=== PATIENT | female | born 1990 | race American Indian/Alaskan Native ===

== ENCOUNTER 2020-12-26 11:54 | Emergency (ER) | payer SELFPAY ==
--- NOTE | 2020-12-26 12:32 | Emergency Department Report ---
ED General Adult HPI - General Stated complaint: RAPID HEART BEAT Time Seen by Provider: 12/26/20 12:20 Source: patient - History of Present Illness Initial comments: Patient is 30 years old female with history of scoliosis. Patient presented to the ER complaining of sudden onset of palpitation after she had a hot shower this morning. Patient stated that she was diagnosed with acute bronchitis yesterday and started on Zithromax. Patient stated that she think this is allergy from her antibiotic. Patient stated that she did not take Zithromax before. Patient currently denying any fever, chills, shortness of breath, chest pain, nausea or vomiting. No skin rash or itching. - Related Data Allergies Allergy/AdvReac Type Severity Reaction Status Date / Time sulfamethoxazole AdvReac Unknown Verified 12/26/20 12:46 [From Bactrim] trimethoprim [From Bactrim] AdvReac Unknown Verified 12/26/20 12:46 ED Review of Systems ROS: Stated complaint: RAPID HEART BEAT Other details as noted in HPI Comment: All other systems reviewed and negative Constitutional: denies: chills, fever Respiratory: denies: cough, shortness of breath, SOB with exertion Cardiovascular: palpitations. denies: chest pain Gastrointestinal: denies: abdominal pain, nausea, vomiting Musculoskeletal: denies: back pain Neurological: denies: headache, weakness ED Physical Exam - General Limitations: No Limitations General appearance: alert, in no apparent distress, anxious - Head Head exam: Present: atraumatic, normocephalic, normal inspection - Eye Eye exam: Present: normal appearance - ENT ENT exam: Present: normal exam, normal orophraynx, mucous membranes moist - Neck Neck exam: Present: normal inspection, full ROM. Absent: tenderness, meningismus - Respiratory Respiratory exam: Present: normal lung sounds bilaterally - Cardiovascular Cardiovascular Exam: Present: regular rate, normal rhythm, normal heart sounds. Absent: tachycardia - GI/Abdominal GI/Abdominal exam: Present: soft, normal bowel sounds. Absent: distended, tenderness, guarding, rebound, rigid, organomegaly, mass, bruit, pulsatile mass, hernia - Extremities Exam Extremities exam: Present: normal inspection, full ROM, normal capillary refill. Absent: tenderness - Back Exam Back exam: Present: normal inspection, full ROM. Absent: CVA tenderness (R), C VA tenderness (L) - Neurological Exam Neurological exam: Present: alert, oriented X3, CN II-XII intact, normal gait, reflexes normal. Absent: motor sensory deficit - Psychiatric Psychiatric exam: Present: anxious - Skin Skin exam: Present: warm, intact, normal color ED Course Vital Signs 12/26/20 12:45 Temperature 98.4 F Pulse Rate 108 H Respiratory 16 Rate Blood Pressure 148/79 [Right] O2 Sat by Pulse 98 Oximetry ED Medical Decision Making - EKG Data -: EKG Interpreted by Me EKG shows normal: sinus rhythm Rate: tachycardia - EKG Data Interpretation: no acute changes - Radiology Data Radiology results: report reviewed - Medical Decision Making Patient is 30 years old female with history of scoliosis. Patient presented to the ER complaining of sudden onset of palpitation after she had a hot shower this morning. Patient stated that she was diagnosed with acute bronchitis yesterday and started on Zithromax. Patient stated that she think this is allergy from her antibiotic. Patient stated that she did not take Zithromax before. Patient currently denying any fever, chills, shortness of breath, chest pain, nausea or vomiting. No skin rash or itching. Patient remained stable in the ER with a stable vital sign. EKG shows sinus tachycardia. Chest x-ray is unremarkable. Patient stated that her symptoms completely resolved. I switch the patient to amoxicillin instead of Zithromax and advised her to follow-up with her primary doctor in the next 2 to 3 days and to return to the ER if she develop any new symptoms. Critical care attestation.: If time is entered above; I have spent that time in minutes in the direct care of this critically ill patient, excluding procedure time. ED Disposition Clinical Impression: Palpitation, Acute bronchitis Disposition: 01 HOME / SELF CARE / HOMELESS Is pt being admited?: No Condition: Stable Instructions: Acute Bronchitis (ED), Acute Bronchitis, Adult, [id number], Palpitations Referrals: PRIMARY CARE,MD [Primary Care Provider] - 3-5 Days
--- NOTE | 2020-12-26 12:59 | XRay Report ---
CHEST 2 VIEWS INDICATION: Cough. COMPARISON: None FINDINGS: Support devices: None. Heart: Within normal limits. Lungs/pleura: No acute air space or interstitial disease. No pneumothorax. Additional findings: Posterior Santos rods are noted throughout the thoracic and lumbar spine. Mi ld scoliosis. IMPRESSION: No acute findings. Signer Name: Jeffry Salazar Jr, MD Signed: 12/26/2020 12:55 PM Workstation Name: [id number]
[2020-12-26 14:14] VITALS: BP 127/82
--- NOTE | 2020-12-27 11:53 | Electrocardiograph Report ---
[facility] Test Date: 2020-12-26 Test Time: 12:01:34 Pat Name: ADONIS DORANTES Department: Room: Gender: F [employer] Technician: JO-ANN : 1990 Requested By: TILA LOYOLA Order Number: [id number] Reading MD: Eddi Correa Measurements Intervals [place] Rate: 112 P: 78 AK: 148 QRS: 57 QRSD: 72 T: 42 QT: 320 QTc: 435 Interpretive Statements Sinus tachycardia Atrial premature complex Probable left atrial enlargement non specfici st-t No previous ECG available for comparison Electronically Signed On 12-27-2020 11:52:57 EDT by Eddi Correa
== END 2020-12-26 14:14 | disposition home or self-care (01) ==
LOC: ED 11:54
DX: J20.9 Acute bronchitis, unspecified (principal); R00.2 Palpitations; Z88.2 Allergy status to sulfonamides; Z88.8 Allergy status to other drugs, medicaments and biological substances
CPT/HCPCS: 71046; 93005; 99283